=== PATIENT | male | born 1990 | race Caucasian/White ===

== ENCOUNTER 2022-01-21 22:56 | Emergency (ER) | payer MEDICAID ==
[~2022-01-21] VITALS: Ht 177.8 cm; Wt 86.2 kg
--- NOTE | 2022-01-21 23:20 | NUR ---
Dr. Gleason at bedside. MSE in progress.
[2022-01-21] MEDS ORDERED: RABIES VACCINE (PCEC)/PF 2.5 UNIT ML IM ONE ×2 (23:30→23:43)
--- NOTE | 2022-01-21 23:50 | NUR ---
Patient discharged to home in stable condition. A/O x 4. NAD noted. Ambulatory with a steady gait. All belongings with patient. Written and verbal after care instructions given. Patient verbalizes understanding of instructions. Stressed follow up or return to ER for worsening s/s.
[2022-01-22 00:20] VITALS: BP 120/68
== END 2022-01-21 23:50 | disposition home or self-care (01) ==
LOC: ER 22:56
DX: Z29.14 Encounter for prophylactic rabies immune globulin (principal); S81.851D Open bite, right lower leg, subsequent encounter; W54.0XXD Bitten by dog, subsequent encounter
CPT/HCPCS: A4663